=== PATIENT | male | born 1950 | race Caucasian/White ===

== ENCOUNTER 2018-12-01 16:14 | Emergency (ER) | payer MEDICARE, OTHER ==
[~2018-12-01] VITALS: Ht 180.3 cm; Wt 124.5 kg
[2018-12-01 18:18] VITALS: BP 151/79
== END 2018-12-01 18:21 | disposition home or self-care (01) ==
LOC: ER 16:14
DX: S60.221A Contusion of right hand, initial encounter (principal); S00.211A Abrasion of right eyelid and periocular area, initial encounter; J43.9 Emphysema, unspecified; K21.9 Gastro-esophageal reflux disease without esophagitis; I10 Essential (primary) hypertension; W18.09XA Striking against other object with subsequent fall, initial encounter; Y93.89 Activity, other specified; Y92.89 Other specified places as the place of occurrence of the external cause; Y99.8 Other external cause status
CPT/HCPCS: 70450; 73130; 99284

== ENCOUNTER 2021-12-04 12:48 | Inpatient (IN) | payer OTHER, MEDICARE ==
[~2021-12-04] VITALS: Ht 182.9 cm; Wt 114.0 kg
[2021-12-04 13:49] LABS: BASOPHILS # (AUTO) 0.1 X10'3 (0-0.2); BASOPHILS % (AUTO) 1.3 % (0-1); EOSINOPHILS # (AUTO) 0.1 X10'3 (0-0.9); EOSINOPHILS % (AUTO) 0.8 % (0-6); HEMATOCRIT 35.1 % (42.0-52.0); HEMOGLOBIN 11.2 g/dl (14.0-17.9); LYMPHOCYTES # (AUTO) 2.5 X10'3 (1.1-4.8); LYMPHOCYTES % (AUTO) 31.3 % (21-51); MEAN CORPUSCULAR HEMOGLOBIN 23.3 PG (27.0-31.0); MEAN CORPUSCULAR HGB CONC 31.9 g/dL (33.0-36.5); MEAN CORPUSCULAR VOLUME 73.3 FL (78-98); MONOCYTES # (AUTO) 0.7 X10'3 (0-0.9); MONOCYTES % (AUTO) 8.8 % (2-12); NEUTROPHILS # (AUTO) 4.7 X10'3 (1.8-7.7); NEUTROPHILS % (AUTO) 57.8 % (42-75); PLATELET COUNT 281 X10'3 (140-440); RED BLOOD COUNT 4.79 X10'6 (4.70-6.10); RED CELL DISTRIBUTION WIDTH 20.5 % (11.5-14.5); WHITE BLOOD COUNT 8.1 X10'3 (4.5-11.0)
[2021-12-04 14:10] LABS: ANISOCYTOSIS 3+; HYPOCHROMASIA 2+; MICROCYTOSIS 1+; PLATELET ESTIMATE NORMAL
[2021-12-04 14:11] LABS: ELLIPTOCYTES FEW; POLYCHROMASIA FEW
[2021-12-04 14:12] LABS: ALANINE AMINOTRANSFERASE 22 U/L (12-78); ALBUMIN 3.4 G/DL (3.4-5.0); ALBUMIN/GLOBULIN RATIO 0.9 (1.1-1.5); ALKALINE PHOSPHATASE 79 IU/L (46-116); ANION GAP 5 (8-16); ASPARTATE AMINO TRANSFERASE 12 U/L (10-37); BILIRUBIN,TOTAL 0.5 MG/DL (0.1-1.0); BLOOD UREA NITROGEN 29 MG/DL (7-18); BUN/CREATININE RATIO 26.1 (5.4-32.0); CALCIUM 8.7 MG/DL (8.5-10.1); CHLORIDE 101 MMOL/L (99-107); CREATININE 1.11 MG/DL (0.60-1.10); GLUCOSE 110 MG/DL (70-104); POTASSIUM 4.3 MMOL/L (3.5-5.1); SODIUM 138 MMOL/L (135-145); TOTAL CARBON DIOXIDE 31.6 MMOL/L (24-32); TOTAL PROTEIN 7.1 G/DL (6.4-8.2); eGFR 65 ML/MIN
[2021-12-04] MEDS ORDERED: furosemide 40mg/4ml inj IV ONE (15:10)
[2021-12-04] MEDS ORDERED: HYDROcodone/acetaminophen 5mg/325mg tablet PO PRN (15:50)
[2021-12-04] MEDS ORDERED: magnesium 2GM in 50ml NS 50 ML IV PRN (15:50)
[2021-12-04] MEDS ORDERED: acetaminophen 325mg tablet PO PRN ×2 (15:50)
[2021-12-04] MEDS ORDERED: albuterol 2.5 MG/3 ML nebule NEB PRN (15:50)
[2021-12-04] MEDS ORDERED: mag hydrox/Alum hydrox/simeth 30ml oral suspension PO PRN (15:50)
[2021-12-04] MEDS ORDERED: POTASSIUM BICARB 20meq eff tab 20 MEQ TABLET.EFF PO PRN (15:50)
[2021-12-04] MEDS ORDERED: magnesium 4gm in 100ml NS 100 ML IV PRN (15:50)
[2021-12-04] MEDS ORDERED: potassium CL 10mEq/100ml bag 100 ML IV PRN (15:50)
[2021-12-04] MEDS ORDERED: PERFLUTREN PROTEIN-A MICROSPHR (Optison) 0.22 MG/ML 3ML VIAL IV ONE (15:50)
[2021-12-04] MEDS ORDERED: HYDROcodone/acetaminophen 10/325mg tab PO PRN (15:50)
[2021-12-04] MEDS ORDERED: ondansetron/PF 4mg/2ml inj IV PRN (15:50)
[2021-12-04] MEDS ORDERED: NICOTINE POLACRILEX 4 MG LOZENGE BC PRN (16:30)
[2021-12-04] MEDS ORDERED: AMIT100T61 PO (17:36)
[2021-12-04] MEDS ORDERED: ATOR40TA71 PO (17:36)
[2021-12-04] MEDS ORDERED: ASPI-611 PO (17:36)
[2021-12-04] MEDS ORDERED: CARV3.122 PO (17:37)
[2021-12-04] MEDS ORDERED: CYAN-51 PO (17:38)
[2021-12-04] MEDS ORDERED: CHLO118M PO (17:38)
[2021-12-04] MEDS ORDERED: CYCL-394 PO (17:39)
[2021-12-04] MEDS ORDERED: DOCU240C26 PO (17:40)
[2021-12-04] MEDS ORDERED: FURO-149 PO (17:41)
[2021-12-04] MEDS ORDERED: FOLI1TAB27 PO (17:41)
[2021-12-04] MEDS ORDERED: HYDR-3972 PO (17:42)
[2021-12-04] MEDS ORDERED: GABA300C PO (17:42)
[2021-12-04] MEDS ORDERED: HYDR30CR RC (17:45)
[2021-12-04] MEDS ORDERED: LORA10TA7 PO (17:46)
[2021-12-04] MEDS ORDERED: LORA2TAB96 PO (17:46)
[2021-12-04] MEDS ORDERED: LOSA50TA64 PO (17:47)
[2021-12-04] MEDS ORDERED: MELO-100 PO (17:47)
[2021-12-04] MEDS ORDERED: MESA1.2T PO (17:48)
[2021-12-04] MEDS ORDERED: METF-438 PO (17:49)
[2021-12-04] MEDS ORDERED: OMEP20CA16 PO (17:50)
[2021-12-04] MEDS ORDERED: TIOT4MIS3 IH (17:50)
[2021-12-04] MEDS ORDERED: POTA-82 PO (17:51)
[2021-12-04] MEDS ORDERED: SENN-263 PO (17:52)
[2021-12-04] MEDS ORDERED: FLO0.4C PO (17:54)
[2021-12-04] MEDS ORDERED: SODI56GE9 PO (17:54)
[2021-12-04] MEDS ORDERED: TOPI50TA24 PO (17:55)
[2021-12-04] MEDS ORDERED: CHOL10006 PO (17:56)
[2021-12-04] MEDS ORDERED: MULT-1219 PO (17:56)
[2021-12-04] MEDS ORDERED: OMEG1CAP13 PO (17:57)
[2021-12-04] MEDS ORDERED: VITA-268 PO (17:57)
--- NOTE | 2021-12-04 18:33 | NUR ---
manager financial systems in with patient.
--- NOTE | 2021-12-04 19:27 | NUR ---
Patient resting comfortably on gurney in no obvious distress, I will continue to monitor.
[2021-12-04] MEDS: K and/or MAG REPLACEMENT MC SCH (20:00)
[2021-12-04] MEDS: docusate sod 100mg capsule PO SCH (20:00)
[2021-12-04] MEDS: furosemide 10 MG/1 ML 10ml inj IV SCH (20:20)
[2021-12-04] MEDS: enoxaparin 40mg/0.4ml syringe SQ SCH (20:24)
[2021-12-04] MEDS: methylPREDNISolone sod succ 125mg/2ml vial IV SCH (20:25)
[2021-12-04] MEDS: ipratropium/albuterol 3ml nebule NEB PRN (21:03)
[2021-12-05 01:00] VITALS: BP 113/74
[2021-12-05 02:00] VITALS: BP 110/76
--- NOTE | 2021-12-05 02:13 | NUR ---
RN collected from pt 19 sticks of cigarette and a silver financial consultant,Items handed over to charge nurse.
[2021-12-05 06:00] VITALS: BP 116/66
[2021-12-05 06:24] LABS: BASOPHILS % (AUTO) 0.4 % (0-1); EOSINOPHILS % (AUTO) 0.1 % (0-6); HEMATOCRIT 35.5 % (42.0-52.0); HEMOGLOBIN 11.1 g/dl (14.0-17.9); LYMPHOCYTES # (AUTO) 1.4 X10'3 (1.1-4.8); LYMPHOCYTES % (AUTO) 23.1 % (21-51); MEAN CORPUSCULAR HEMOGLOBIN 22.7 PG (27.0-31.0); MEAN CORPUSCULAR HGB CONC 31.2 g/dL (33.0-36.5); MEAN CORPUSCULAR VOLUME 72.8 FL (78-98); MEAN PLATELET VOLUME 6.9 FL (7.4-10.4); MONOCYTES # (AUTO) 0.3 X10'3 (0-0.9); MONOCYTES % (AUTO) 4.3 % (2-12); NEUTROPHILS # (AUTO) 4.3 X10'3 (1.8-7.7); NEUTROPHILS % (AUTO) 72.1 % (42-75); PLATELET COUNT 248 X10'3 (140-440); RED BLOOD COUNT 4.89 X10'6 (4.70-6.10); RED CELL DISTRIBUTION WIDTH 20.9 % (11.5-14.5)
[2021-12-05 06:42] LABS: ALANINE AMINOTRANSFERASE 21 U/L (12-78); ALBUMIN/GLOBULIN RATIO 0.8 (1.1-1.5); ALKALINE PHOSPHATASE 72 IU/L (46-116); ANION GAP 8 (8-16); ASPARTATE AMINO TRANSFERASE 14 U/L (10-37); BILIRUBIN,TOTAL 0.6 MG/DL (0.1-1.0); BLOOD UREA NITROGEN 27 MG/DL (7-18); BUN/CREATININE RATIO 28.7 (5.4-32.0); CALCIUM 8.6 MG/DL (8.5-10.1); CHLORIDE 101 MMOL/L (99-107); CREATININE 0.94 MG/DL (0.60-1.10); GLUCOSE 102 MG/DL (70-104); MAGNESIUM 1.6 MG/DL (1.5-2.4); POTASSIUM 3.9 MMOL/L (3.5-5.1); SODIUM 139 MMOL/L (135-145); TOTAL CARBON DIOXIDE 30.3 MMOL/L (24-32); TOTAL PROTEIN 6.6 G/DL (6.4-8.2); eGFR 79 ML/MIN
[2021-12-05 06:51] LABS: % IRON SATURATION 5 % (11-46); IRON 16 UG/DL (53-167); TOTAL IRON BINDING CAPACITY 337 UG/DL (259-388)
[2021-12-05] MEDS: K and/or MAG REPLACEMENT MC SCH ×2 (08:00→20:00)
[2021-12-05] MEDS: docusate sod 100mg capsule PO SCH ×2 (08:49→20:00)
[2021-12-05] MEDS: furosemide 10 MG/1 ML 10ml inj IV SCH ×2 (09:13→21:17)
[2021-12-05] MEDS: methylPREDNISolone sod succ 125mg/2ml vial IV SCH (09:17)
[2021-12-05] MEDS: ipratropium/albuterol 3ml nebule NEB PRN (11:07)
[2021-12-05] MEDS: magnesium hydroxide 30ml (MOM) UD suspension PO SCH (12:24)
[2021-12-05 12:30] VITALS: BP 106/60
[2021-12-05 18:00] VITALS: BP 121/68
--- NOTE | 2021-12-05 18:25 | NUR ---
Problems reprioritized. Patient report given, questions answered & plan of care reviewed with Bing RN, patient stable at transfer of care.
[2021-12-05] MEDS: enoxaparin 40mg/0.4ml syringe SQ SCH (21:16)
[2021-12-05] MEDS: psyllium seed 3.4 gm packet PO SCH (21:18)
[2021-12-05 22:00] VITALS: BP 109/68
[2021-12-06 02:00] VITALS: BP 117/67
[2021-12-06 06:00] VITALS: BP 123/78
--- NOTE | 2021-12-06 06:17 | NUR ---
Patient in room PCU 3017. I have received report from Bing SHUKLA and had the opportunity to ask questions and assume patient care.
[2021-12-06 07:00] LABS: BASOPHILS # (AUTO) 0.1 X10'3 (0-0.2); BASOPHILS % (AUTO) 0.7 % (0-1); EOSINOPHILS % (AUTO) 0.3 % (0-6); HEMATOCRIT 33.1 % (42.0-52.0); HEMOGLOBIN 10.6 g/dl (14.0-17.9); LYMPHOCYTES # (AUTO) 3.2 X10'3 (1.1-4.8); LYMPHOCYTES % (AUTO) 27.9 % (21-51); MEAN CORPUSCULAR HEMOGLOBIN 23.1 PG (27.0-31.0); MEAN CORPUSCULAR HGB CONC 31.9 g/dL (33.0-36.5); MEAN CORPUSCULAR VOLUME 72.2 FL (78-98); MEAN PLATELET VOLUME 6.9 FL (7.4-10.4); MONOCYTES # (AUTO) 0.8 X10'3 (0-0.9); MONOCYTES % (AUTO) 6.6 % (2-12); NEUTROPHILS # (AUTO) 7.4 X10'3 (1.8-7.7); NEUTROPHILS % (AUTO) 64.5 % (42-75); PLATELET COUNT 254 X10'3 (140-440); RED BLOOD COUNT 4.59 X10'6 (4.70-6.10); RED CELL DISTRIBUTION WIDTH 20.3 % (11.5-14.5); WHITE BLOOD COUNT 11.5 X10'3 (4.5-11.0)
[2021-12-06 07:15] LABS: ALANINE AMINOTRANSFERASE 22 U/L (12-78); ALBUMIN 3.2 G/DL (3.4-5.0); ALBUMIN/GLOBULIN RATIO 0.9 (1.1-1.5); ALKALINE PHOSPHATASE 67 IU/L (46-116); ANION GAP 8 (8-16); ASPARTATE AMINO TRANSFERASE 14 U/L (10-37); BILIRUBIN,TOTAL 0.6 MG/DL (0.1-1.0); BLOOD UREA NITROGEN 26 MG/DL (7-18); BUN/CREATININE RATIO 27.7 (5.4-32.0); CALCIUM 8.6 MG/DL (8.5-10.1); CHLORIDE 100 MMOL/L (99-107); CREATININE 0.94 MG/DL (0.60-1.10); GLUCOSE 114 MG/DL (70-104); MAGNESIUM 1.7 MG/DL (1.5-2.4); POTASSIUM 3.4 MMOL/L (3.5-5.1); SODIUM 139 MMOL/L (135-145); TOTAL CARBON DIOXIDE 30.8 MMOL/L (24-32); TOTAL PROTEIN 6.7 G/DL (6.4-8.2); eGFR 79 ML/MIN
[2021-12-06] MEDS: K and/or MAG REPLACEMENT MC SCH ×2 (08:00→20:00)
[2021-12-06] MEDS: magnesium hydroxide 30ml (MOM) UD suspension PO SCH (08:00)
[2021-12-06] MEDS: docusate sod 100mg capsule PO SCH ×2 (08:00→19:46)
[2021-12-06] MEDS: POTASSIUM BICARB 20meq eff tab 20 MEQ TABLET.EFF PO PRN ×3 (11:59→20:44)
[2021-12-06] MEDS: furosemide 10 MG/1 ML 10ml inj IV SCH ×2 (12:00→20:00)
[2021-12-06] MEDS ORDERED: LORazepam 1 MG tablet PO PRN (14:30)
[2021-12-06] MEDS ORDERED: LORazepam 2 mg/ml vial IV PRN (14:30)
[2021-12-06] MEDS: methylPREDNISolone sod succ 125mg/2ml vial IV SCH ×2 (16:53→23:48)
[2021-12-06] MEDS ORDERED: cyclobenzaprine 10mg tablet PO PRN (17:45)
[2021-12-06] MEDS ORDERED: loratadine 10mg tablet PO PRN (17:45)
[2021-12-06 18:00] VITALS: BP 124/76
--- NOTE | 2021-12-06 18:30 | NUR ---
Patient in room PCU 3017. I have received report from Ibis SHUKLA and had the opportunity to ask questions and assume patient care.
--- NOTE | 2021-12-06 18:50 | NUR ---
Problems reprioritized. Patient report given, questions answered & plan of care reviewed with Ian SHUKLA, patient stable at transfer of care.
[2021-12-06] MEDS: psyllium seed 3.4 gm packet PO SCH (19:46)
[2021-12-06] MEDS: losartan 25mg tablet PO SCH (19:52)
[2021-12-06] MEDS: carVEDilol 3.125mg tablet PO SCH (19:54)
[2021-12-06] MEDS: enoxaparin 40mg/0.4ml syringe SQ SCH (19:56)
[2021-12-06] MEDS ORDERED: carVEDilol 3.125mg tablet PO SCH (20:00)
[2021-12-06] MEDS: HYDROcodone/acetaminophen 10/325mg tab PO SCH (20:00)
[2021-12-06] MEDS ORDERED: amitriptyline 50mg tablet PO SCH (21:00)
[2021-12-06] MEDS ORDERED: LORazepam 1 MG tablet PO SCH (21:00)
[2021-12-06 22:00] VITALS: BP 117/70
--- NOTE | 2021-12-06 22:00 | NUR ---
agree with HISTOLOGY TECHNOLOGIST assessments from ARPITA Cui.
[2021-12-06] MEDS: gabapentin 300mg capsule PO SCH (23:48)
[2021-12-07 02:00] VITALS: BP 132/81
[2021-12-07 06:00] VITALS: BP 104/65
--- NOTE | 2021-12-07 06:12 | NUR ---
Problems reprioritized. Patient report given, questions answered & plan of care reviewed with Ibis SHUKLA.
[2021-12-07 06:39] LABS: BASOPHILS % (AUTO) 0 % (0-1); EOSINOPHILS % (AUTO) 0 % (0-6); HEMATOCRIT 34.3 % (42.0-52.0); HEMOGLOBIN 10.9 g/dl (14.0-17.9); LYMPHOCYTES # (AUTO) 1.3 X10'3 (1.1-4.8); LYMPHOCYTES % (AUTO) 17.2 % (21-51); MEAN CORPUSCULAR HEMOGLOBIN 23.1 PG (27.0-31.0); MEAN CORPUSCULAR HGB CONC 31.8 g/dL (33.0-36.5); MEAN CORPUSCULAR VOLUME 72.6 FL (78-98); MONOCYTES # (AUTO) 0.4 X10'3 (0-0.9); MONOCYTES % (AUTO) 4.6 % (2-12); NEUTROPHILS # (AUTO) 6.1 X10'3 (1.8-7.7); NEUTROPHILS % (AUTO) 78.2 % (42-75); PLATELET COUNT 243 X10'3 (140-440); RED BLOOD COUNT 4.73 X10'6 (4.70-6.10); RED CELL DISTRIBUTION WIDTH 20.3 % (11.5-14.5); WHITE BLOOD COUNT 7.8 X10'3 (4.5-11.0)
[2021-12-07 07:22] LABS: ALANINE AMINOTRANSFERASE 25 U/L (12-78); ALBUMIN 3.4 G/DL (3.4-5.0); ALBUMIN/GLOBULIN RATIO 0.9 (1.1-1.5); ALKALINE PHOSPHATASE 69 IU/L (46-116); ANION GAP 6 (8-16); ASPARTATE AMINO TRANSFERASE 17 U/L (10-37); BILIRUBIN,TOTAL 0.7 MG/DL (0.1-1.0); BLOOD UREA NITROGEN 22 MG/DL (7-18); BUN/CREATININE RATIO 21.6 (5.4-32.0); CALCIUM 8.8 MG/DL (8.5-10.1); CHLORIDE 99 MMOL/L (99-107); CREATININE 1.02 MG/DL (0.60-1.10); GLUCOSE 140 MG/DL (70-104); MAGNESIUM 1.9 MG/DL (1.5-2.4); POTASSIUM 3.8 MMOL/L (3.5-5.1); SODIUM 139 MMOL/L (135-145); TOTAL CARBON DIOXIDE 34.4 MMOL/L (24-32); TOTAL PROTEIN 7.1 G/DL (6.4-8.2); eGFR 72 ML/MIN
[2021-12-07] MEDS ORDERED: mesalamine 1.2gm ER tablet PO SCH (08:00)
[2021-12-07] MEDS ORDERED: aspirin 81mg, enteric-coated 1 TAB TABLET.DR PO SCH ×2 (08:00)
[2021-12-07] MEDS: HYDROcodone/acetaminophen 10/325mg tab PO SCH (08:00)
[2021-12-07] MEDS: losartan 25mg tablet PO SCH (08:00)
[2021-12-07] MEDS ORDERED: clopidogrel 75mg tablet PO SCH (08:00)
[2021-12-07] MEDS ORDERED: tamsulosin 0.4mg capsule PO SCH (08:00)
[2021-12-07] MEDS: docusate sod 100mg capsule PO SCH (08:00)
[2021-12-07] MEDS ORDERED: Tiotropium Br/Olodaterol HCl (Stiolto Respimat Inhal Spray) 2 PUFFS IH SCH (08:00)
[2021-12-07] MEDS ORDERED: atorvastatin 20mg tablet PO SCH (08:00)
[2021-12-07] MEDS ORDERED: docusate sod 250mg capsule PO SCH (08:00)
[2021-12-07] MEDS: magnesium hydroxide 30ml (MOM) UD suspension PO SCH (08:00)
[2021-12-07] MEDS ORDERED: spironolactone 25 MG tablet PO SCH (08:30)
[2021-12-07] MEDS: gabapentin 300mg capsule PO SCH (09:51)
[2021-12-07] MEDS: methylPREDNISolone sod succ 125mg/2ml vial IV SCH (09:53)
[2021-12-07] MEDS: carVEDilol 3.125mg tablet PO SCH (09:56)
[2021-12-07] MEDS ORDERED: IPRA3AMP9 NEB (10:02)
[2021-12-07] MEDS ORDERED: SPIR25TA PO (10:02)
[2021-12-07] MEDS ORDERED: PRED10TA23 PO (10:02)
[2021-12-07] MEDS ORDERED: CLOP75TA34 PO (10:02)
[2021-12-07] MEDS: furosemide 10 MG/1 ML 10ml inj IV SCH (10:02)
[2021-12-07] MEDS ORDERED: AMOX-419 PO (10:02)
[2021-12-07 11:00] VITALS: BP 125/70
--- NOTE | 2021-12-07 11:58 | NUR ---
O2 Sat at rest on room air:__92 _% If below 89%: Recovery O2 Sat at rest on ___LPM:___%:___% via (mask/nasal cannula, etc..) No further documentation is necessary. If O2 Sat did not drop below 89% on room air,ambulate patient on room air. O2 Sat while ambulating on room air:_86__% Recovery O2 Sat while ambulating on _2__LPM:__92_% No further documentation is necessary. If patient does not drop below 89% while ambulating, he/she does not qualify for home O2.
[2021-12-07 15:00] VITALS: BP 118/70
--- NOTE | 2021-12-07 15:38 | NUR ---
PAGER ID: [phone] MESSAGE: [id number], Jhon Bull. Pt did not have a preferred pharmacy listed and the prescriptions were already finalized, but they weren't sent anywhere. Can you re-finalize now that I added a pharmacy. Ibis U [id number].
--- NOTE | 2021-12-07 18:04 | NUR ---
Patient stable for discharge per Dr. Ramos. All discharge instructions reviewed with patient and all questions answered. Pt verbalized understanding. New medications faxed to [facility] in [place]. PIV discontinued, cannula intact. Tele discontinued. All belongings collected and sent with patient. Wheeled to lobby via nursing staff and picked up by family.
== END 2021-12-07 17:38 | disposition home health service (06) | DRG 189 ==
LOC: ER 12:49 → ED HOLD 16:14 → PCU 3S 12-05 01:05
PROVIDERS: ADMIT Family Medicine; ATTEND Family Medicine
DX: J96.01 Acute respiratory failure with hypoxia (principal); I50.23 Acute on chronic systolic (congestive) heart failure; N17.0 Acute kidney failure with tubular necrosis; I42.9 Cardiomyopathy, unspecified; I11.0 Hypertensive heart disease with heart failure; Z66 Do not resuscitate; E11.42 Type 2 diabetes mellitus with diabetic polyneuropathy; E78.5 Hyperlipidemia, unspecified; F43.10 Post-traumatic stress disorder, unspecified; I08.1 Rheumatic disorders of both mitral and tricuspid valves; D50.9 Iron deficiency anemia, unspecified; J43.9 Emphysema, unspecified; K21.9 Gastro-esophageal reflux disease without esophagitis; Z79.02 Long term (current) use of antithrombotics/antiplatelets; Z79.84 Long term (current) use of oral hypoglycemic drugs; Z79.899 Other long term (current) drug therapy; Z88.8 Allergy status to other drugs, medicaments and biological substances; Z72.0 Tobacco use; Z71.6 Tobacco abuse counseling
CPT/HCPCS: 36415; 71045; 80053; 83540; 83550; 83735; 83880; 84484; 85008; 85025; 87081; 93005; 93306; 94640; 94664; 94668; 94760; 96374; 97116; 97161; 99285; G0378; J1650; J1940; J2060; J2930